=== PATIENT | male | born 1930 | race Caucasian/White ===

== ENCOUNTER 2016-07-13 18:41 | Emergency (ER) | payer MEDICARE, OTHER ==
[~2016-07-13] VITALS: Ht 188 cm; Wt 70.0 kg
[2016-07-13] MEDS ORDERED: BALS60OI TP (19:10)
[2016-07-13] MEDS ORDERED: PRAV10TA39 PO (19:10)
[2016-07-13] MEDS ORDERED: RIFA300 PO (19:10)
[2016-07-13] MEDS ORDERED: DSS100 PO (19:10)
[2016-07-13] MEDS ORDERED: ERGO2000 PO (19:10)
[2016-07-13] MEDS ORDERED: ASPI-891 PO (19:10)
[2016-07-13] MEDS ORDERED: BISA10S PR (19:10)
[2016-07-13] MEDS ORDERED: PARO10TA89 PO (19:10)
[2016-07-13] MEDS ORDERED: DONE5TAB PO (19:10)
[2016-07-13] MEDS ORDERED: SEVE400 PO (19:10)
[2016-07-13] MEDS ORDERED: BUME1TAB30 PO (19:10)
[2016-07-13] MEDS ORDERED: ESOM20CA31 PO (19:10)
[2016-07-13] MEDS ORDERED: FINA5TAB41 PO (19:10)
[2016-07-13] MEDS ORDERED: OXYC10 PO (19:10)
[2016-07-13] MEDS ORDERED: FERR-72 PO (19:10)
[2016-07-13] MEDS ORDERED: NITR.4 SL (19:10)
[2016-07-13] MEDS ORDERED: ASCO500 PO (19:10)
[2016-07-13] MEDS ORDERED: ZINC220C6 PO (19:10)
[2016-07-13] MEDS ORDERED: FOLI0.8T22 PO (19:10)
[2016-07-13] MEDS ORDERED: SANTO TP (19:10)
[2016-07-13] MEDS ORDERED: LACT1CAP62 PO (19:10)
[2016-07-13] MEDS ORDERED: MINO50CA36 PO (19:10)
[2016-07-13 19:25] LABS: EOSINOPHILS % (AUTO) 5.7 % (1.0-6.0); HEMATOCRIT 34.8 % (41-53); HEMOGLOBIN 11.2 g/dL (13.5-17.5); LYMPHOCYTES # (AUTO) 1.9 K/uL (1.0-4.8); LYMPHOCYTES % (AUTO) 21.8 % (22.0-44.0); MEAN CORPUSCULAR HEMOGLOBIN 31.5 pg (26.0-34.0); MEAN CORPUSCULAR HGB CONC 32.1 G/dL (31.0-37.0); MEAN CORPUSCULAR VOLUME 98 fL (80-100); MONOCYTES % (AUTO) 11.4 % (2.0-9.0); NEUTROPHILS # (AUTO) 5.2 K/uL (1.8-7.7); NEUTROPHILS % (AUTO) 60.1 % (40.0-70.0); PLATELET COUNT (AUTO) 473 K/uL (150-450); RED BLOOD CELL COUNT(AUTO) 3.54 MIL/uL (4.50-5.90); RED CELL DISTRIBUTION WIDTH 18.1 % (11.5-14.5); WHITE BLOOD COUNT (AUTO) 8.6 K/uL (4.5-11.0)
[2016-07-13 19:43] LABS: RBC MORPHOLOGY COMMENT DIMORPHIC RBC
[2016-07-13 19:49] LABS: CALCIUM, TOTAL 8.1 mg/dL (8.8-10.5); CREATININE 2.83 mg/dL (0.60-1.30); POTASSIUM 4.1 mmol/L (3.5-5.1)
[2016-07-13 19:55] LABS: ALBUMIN 2.6 g/dL (3.4-5.0); BILIRUBIN,TOTAL 0.2 mg/dL (0.1-1.0); TOTAL PROTEIN, SERUM 6.6 g/dL (6.4-8.2)
[2016-07-13 21:06] VITALS: BP 129/71
== END 2016-07-13 21:53 | disposition home or self-care (01) ==
LOC: EMS 18:47
DX: Z00.8 Encounter for other general examination (principal); F03.90 Unspecified dementia, unspecified severity, without behavioral disturbance, psychotic disturbance, mood disturbance, and anxiety; N18.6 End stage renal disease; I48.91 Unspecified atrial fibrillation; I25.10 Atherosclerotic heart disease of native coronary artery without angina pectoris; Z88.0 Allergy status to penicillin; Z99.2 Dependence on renal dialysis
CPT/HCPCS: 93005; 93041; 99285